=== PATIENT | female | born 1975 | race Caucasian/White ===

== ENCOUNTER → 2020-12-23 | Outpatient (CLI) | payer OTHER ==
[~2020-12-23] MED LIST: AUGMENTIN 875-1 EACH PO; HUMULIN N100 UNIT/1 SQ; HUMULIN R100 UNIT/1 SQ; IBU800 MG PO; LEVEMIR100 UNIT/1 SQ; LORTAB 5-325 M1 EACH PO; MACROBID 100 M100 MG PO; METFORMIN HCL500 MG PO; MIRALAX17 GM PO; NAPROSYN500 MG PO; NEURONTIN PO; PHENERGAN 25 MG25 M1 PO; TOPAMAX50 MG PO; XANAX PO; ZESTRIL5 MG PO
== END ==
LOC: KOH-I 14:14
DX: M25.562 Pain in left knee (principal); M17.12 Unilateral primary osteoarthritis, left knee
CPT/HCPCS: 73564